=== PATIENT | female | born 1965 | race Caucasian/White ===

== ENCOUNTER → 2020-09-27 14:03 | Outpatient (CLI) | payer OTHER, SELFPAY ==
--- NOTE | ~2020-09-27 | MM_ITS ---
EXAMINATION: MM screening [facility] BI w oly HISTORY: Screening TECHNIQUE: Craniocaudal and mediolateral oblique 3-D tomosynthesis images were obtained and synthetic 2-D images were generated. CAD analysis was submitted and interpreted. COMPARISON: Comparison to multiple prior studies sequentially, with oldest reviewed study dated 03/20. BREAST PARENCHYMAL COMPOSITION: The breasts are extremely dense, which lowers the sensitivity of mamm ography. FINDINGS: There is a benign-appearing mass in the lower inner quadrant of the right breast which does not appear to be significantly changed allowing for differences of technique. There is no evidence o f suspicious mass, calcification, or architectural distortion to suggest malignancy in either breast. There has been no suspicious interval change. IMPRESSION: 1. No mammographic evidence of malignancy. 2. Recommend routine screening mammography in one year. BI-RADS Category 2: Benign finding(s). Reviewed, dictated and finalized at location A. [facility]
== END ==
PROVIDERS: PCP Internal Medicine; Visit Provider Obstetrics & Gynecology
DX: Z12.31 Encounter for screening mammogram for malignant neoplasm of breast (principal)
CPT/HCPCS: 77063; 77067

== ENCOUNTER 2022-01-10 14:52 | Outpatient (CLI) | payer OTHER, SELFPAY ==
--- NOTE | ~2022-01-10 | MM_ITS ---
EXAMINATION: MM screening danae BI w oly HISTORY: Screening mammogram TECHNIQUE: Craniocaudal and mediolateral oblique 3-D tomosynthesis images were obtained and synthetic 2-D images were generated. Bilateral rotated lateral CC views. CAD analysis was submitted and interp reted. COMPARISON: 09/27/2020, 08/18/2019, 06/25/2018 bilateral screening mammogram examinations BREAST PARENCHYMAL COMPOSITION: The breasts are heterogeneously dense, which may obscure small masses . FINDINGS: Asymmetry and questionable architectural distortion in the upper breasts on MLO view. Bilat eral diagnostic mammography and bilateral breast ultrasound examination are recommended. IMPRESSION: 1. Possible asymmetry/architectural distortion in upper breasts 2. Diagnostic bilateral mammogram and bilateral breast ultrasound examination are recommended BI-RADS Category 0: Incomplete: Needs additional imaging evaluation. Reviewed, dictated and finalized at location A. IMPRESSION: 1. Possible asymmetry/architectural distortion in upper breasts 2. Diagnostic bilateral mammogram and bilateral breast ultrasound examination a re recommended BI-RADS Category 0: Incomplete: Needs additional imaging evaluation.
== END 2022-01-10 14:53 | disposition home or self-care (01) ==
LOC: ANHIMG 14:53
PROVIDERS: PCP Internal Medicine; Visit Provider Obstetrics & Gynecology
DX: Z12.31 Encounter for screening mammogram for malignant neoplasm of breast (principal); R92.8 Other abnormal and inconclusive findings on diagnostic imaging of breast
CPT/HCPCS: 77063; 77067

== ENCOUNTER 2022-01-24 11:23 | Outpatient (CLI) | payer OTHER, SELFPAY ==
--- NOTE | ~2022-01-24 | MMUS_ITS ---
EXAMINATION: MM diagnostic danae BI w oly, US breast BI complete HISTORY: Follow-up bilateral breast asymmetries TECHNIQUE: Additional 3-D tomosynthesis images of the breasts were performed and synthetic 2-D images were generated. CAD analysis was submitted and interpreted. High resolution complete bilateral breas t ultrasound was performed. COMPARISON: 01/10/2022 BREAST PARENCHYMAL COMPOSITION: The breasts are extremely dense, which lowers the sensitivity of mamm ography FINDINGS: MAMMOGRAPHIC FINDINGS: There are no suspicious masses, calcifications or architectural distortion in either breast to sugges t malignancy. ULTRASOUND: Complete bilateral US of all 4 quadrants of the breasts and retroareolar region was reviewed. Right breast ultrasound: At 2:00, 2 cm from the nipple there is an oval hypoechoic mass measuring 7 x 4 x 5 mm without posterior shadowing or internal vascularity. Parallel orientation. At 3:00, 5 cm fr om the nipple, there is a 7 mm cyst. Left breast ultrasound: At 5:00, 5 cm from the nipple there is a 3 mm cyst. At 5:00, 5 cm from the ni pple there is a 3 mm cyst. At 10:00, 5 cm from the nipple there is a 8 mm cyst. IMPRESSION: 1. Probable benign right breast mass by ultrasound at 2:00, 2 cm from the nipple. No evidence for mal ignancy in the left breast. 2. Recommend 6 month follow-up limited right breast ultrasound BI-RADS category 3, probably benign findings. Reviewed, dictated and finalized at location A. IMPRESSION: 1. Probable benign right breast mass by ultrasound at 2:00, 2 cm from the nippl e. No evidence for malignancy in the left breast. 2. Recommend 6 month follow-up limited right breast ultrasound BI-RADS category 3, probably benign findings.
== END 2022-01-24 11:24 | disposition home or self-care (01) ==
LOC: ANHIMG 11:25
PROVIDERS: PCP Internal Medicine; Visit Provider Obstetrics & Gynecology Gynecology
DX: R92.8 Other abnormal and inconclusive findings on diagnostic imaging of breast (principal)
CPT/HCPCS: 76641; 77062; 77066; G0279

== ENCOUNTER → 2022-08-02 09:56 | Outpatient (CLI) | payer OTHER, SELFPAY ==
--- NOTE | ~2022-08-02 | US_ITS ---
US breast RT limited 08/02/2022 10:13 Indication: Follow-up right breast mass Procedure: High-resolution Limited ultrasound of the right breast Comparison: Ultrasound dated 01/24/2022 Findings: There is an oval hypoechoic mass at 2:00, 2 cm from the nipple with posterior acoustic enha ncement measuring 5 x 4 x 4 mm without internal vascularity. This compares to prior study when the ma ss measured 7 x 4 x 5 mm. There is parallel orientation, no internal vascularity. Impression: 1: Slightly decreased size of oval 5 mm right breast mass located at 2:00, 2 cm from the nipple, like ly benign. BI-RADS CATEGORY 3-PROBABLY BENIGN FINDING RECOMMENDATION: Six-month follow-up bilateral mammogram and targeted right breast ultrasound. Reviewed, dictated and finalized at location A. Impression: 1: Slightly decreased size of oval 5 mm right breast mass located at 2:00, 2 cm from the nipple, likely benign. BI-RADS CATEGORY 3-PROBABLY BENIGN FINDING RECOMMENDATION: Six-month follow-up bilateral mammogram and targeted right tasha st ultrasound.
== END ==
PROVIDERS: PCP Advanced Practice Midwife; Visit Provider Advanced Practice Midwife
DX: R92.8 Other abnormal and inconclusive findings on diagnostic imaging of breast (principal)
CPT/HCPCS: 76642

== ENCOUNTER → 2023-05-21 09:46 | Outpatient (CLI) | payer OTHER, SELFPAY ==
--- NOTE | ~2023-05-21 | MMUS_ITS ---
EXAMINATION: MM diagnostic danae BI w oly, US breast RT limited HISTORY: TECHNIQUE: Additional 3-D tomosynthesis images of were performed and synthetic 2-D images were genera betsy. CAD analysis was submitted and interpreted. High resolution breast ultrasound was performed. COMPARISON: 08/19/2022 Limited right breast ultrasound examination 4. 11/26/2021 diagnostic bilateral mammogram and complete bilateral breast ultrasound examination BREAST PARENCHYMAL COMPOSITION: The breasts are heterogeneously dense, which may obscure small masses . FINDINGS: MAMMOGRAPHIC FINDINGS: Approximately 4.5 mm circumscribed low-density opacity is noted in the anterior inner aspect of the m id medial right breast. This has benign mammographic features. No suspicious mass, architectural distortion, malignant calcification, skin thickening or retraction of either breast is detected. ULTRASOUND: Targeted ultrasound of right breast was performed in the 2:00 and 3:00 area. At 2:00 2 cm from the nipple there is a circumscribed hypoechoic solid lesion measuring 4.3 x 4.3 x 5 .5 mm dimension.. The margins are mildly irregular. No internal vascularity is noted. Due to the irre gular margins and slight increase in size since previous measurement of 4.1 x 4.4 x 5 mm on 08/02/2022 , ultrasound-guided biopsy is recommended. IMPRESSION: 1. Mildly increased size of right breast 2:00 lesion, measuring up to 5.5 mm dimension, with mildly i rregular margins. 2. Ultrasound-guided biopsy of right breast 2:00 lesion is recommended BI-RADS category 4, suspicious findings. Reviewed, dictated and finalized at location A. IMPRESSION: 1. Mildly increased size of right breast 2:00 lesion, measuring up to 5.5 mm di mension, with mildly irregular margins. 2. Ultrasound-guided biopsy of right breast 2:00 lesion is recommended BI-RADS category 4, suspicious findings.
== END ==
PROVIDERS: PCP Advanced Practice Midwife; Visit Provider Advanced Practice Midwife
DX: N63.10 Unspecified lump in the right breast, unspecified quadrant (principal); R92.8 Other abnormal and inconclusive findings on diagnostic imaging of breast
CPT/HCPCS: 76642; 77062; 77066; G0279

== ENCOUNTER → 2023-08-16 10:51 | Outpatient (CLI) | payer OTHER, SELFPAY ==
--- NOTE | ~2023-08-16 | DEXA_ITS ---
Bone Density Report Name: LING HODGES Age: 57 Sex: Female Ethnicity: White Date of : 1965 Indication: postmenopausal; screening for osteoporosis; hysterectomy; Referring Provider: ANUP PATEL Study: Bone densitometry was performed. Exam Date: August 16, 2023 Accession number: [id number] Bone Density: Region BMD T-score Z-score Classification AP Spine (L1-L4) 0.951 -0.9 0.5 Normal Femoral Neck (Left) 0.726 -1.1 0.1 Osteopenia Total Hip (Left) 0.832 -0.9 0.0 Normal Femoral Neck (Right) 0.799 -0.5 0.8 Normal Total Hip (Right) 0.804 -1.1 -0.3 Osteopenia Total Hip Mean 0.818 -1.0 -0.2 Normal World Health Organization criteria for BMD impression classify patients as: Normal (T-score at or above -1.0), Osteopenia (T-score between -1.0 and -2.5), or Osteoporosis (T-score at or below -2.5). 10-year Fracture Risk(1): Major Osteoporotic Fracture 6.8% Hip Fracture 0.7% Reported Risk Factors: [place] (), Neck BMD=0.726, BMI=24.5, smoking (1) FRAX(R) Version 3.08. Fracture probability calculated for an untreated patient. Fracture probability may be lower if the patient has received treatment. Previous Exams: Region Exam Age BMD T-score BMD Change BMD Change Date g/cm2 vs Baseline vs Previous AP Spine(L1-L4) 08/16/2023 57 0.951 -0.9 -0.084* -0.084* 06/25/2018 52 1.036 -0.1 Total Hip(Left) 08/16/2023 57 0.832 -0.9 -0.021 -0.021 06/25/2018 52 0.853 -0.7 Total Hip(Right) 08/16/2023 57 0.804 -1.1 -0.021 -0.021 06/25/2018 52 0.825 -1.0 *Denotes significance at 95% confidence level, LSC for AP Spine = 0.022 g/cm2, LSC for Total Hip = 0.027 g/cm2 Clinical Information Provided by Patient: Smokes Has the following medical conditions: Hysterectomy Patient maximum height was 65 Menopause Age: 41 Drinks caffeinated beverages Onset of menses at age 11 Number of children 1 Impression: The patient has low bone mass, based on the Right Total Hip T-score. The patient has an estimated ten-year risk of hip fracture of 0.7% and an estimated ten-year risk of major fracture of 6.8%, based on the WHO FRAX algorithm. The patient has risk factors, including: smoking. The BMD for the AP Spine(L1-L4) decreased, changing by -0.084 since the last DXA exam. Discussion: BONE DENSITY IS LOW AT ONE OR MORE SKELETAL SITES. This patient's lowest T-score is low at one or more
== END ==
PROVIDERS: PCP Advanced Practice Midwife; Visit Provider Advanced Practice Midwife
DX: Z78.0 Asymptomatic menopausal state (principal); M85.89 Other specified disorders of bone density and structure, multiple sites
CPT/HCPCS: 77080

== ENCOUNTER 2023-12-11 09:49 | Outpatient (CLI) | payer OTHER, SELFPAY ==
--- NOTE | ~2023-12-11 | MMUS_ITS ---
EXAMINATION: MM diagnostic danae RT w oly, US breast RT limited HISTORY: Six-month follow-up of 2:00 right breast lesion 2 cm from nipple TECHNIQUE: Full field and spot ML, MLO and CC 3-D tomosynthesis images of the right breast were perfo rmed and synthetic 2-D images were generated. CAD analysis was submitted and interpreted. High resolu tion limited right breast ultrasound was performed. COMPARISON: 05/21/2023 diagnostic right mammogram and limited right breast ultrasound 08/02/2022 Limited right breast ultrasound 01/24/2022 bilateral diagnostic mammogram and bilateral complete breast ultrasound examination 01/10/2022 bilateral screening mammogram BREAST PARENCHYMAL COMPOSITION: The breasts are heterogeneously dense, which may obscure small masses . FINDINGS: MAMMOGRAPHIC FINDINGS: No suspicious mass or architectural distortion, malignant calcification, skin thickening or retractio n or significant new or developing density is detected. ULTRASOUND: 3-4:00 2 cm from nipple: There is an irregular hypoechoic antiparallel approximately 3.5 x 4 x 3.3 mm lesion with mild adjacent vascularity on color flow imaging. Ultrasound-guided biopsy of this is rec ommended 2.-3:00 2 cm from nipple: Incompletely circumscribed irregular approximately 4.3 x 5.4 x 6.3 mm mass without internal vascularity or posterior shadowing. The incomplete circumcision and partially irregu lar margins are of concern. Additionally, there is mildly increased size compared to 08/19/2022. Ultr asound-guided biopsy is recommended. IMPRESSION: 1. Suspicious sonographic findings at 3-4:00 2 cm from nipple and 2-3:00 2 cm from nipple 2. Ultrasound-guided biopsy of these 2 areas is recommended BI-RADS category 4, suspicious findings. Reviewed, dictated and finalized at location A. IMPRESSION: 1. Suspicious sonographic findings at 3-4:00 2 cm from nipple and 2-3:00 2 cm f rom nipple 2. Ultrasound-guided biopsy of these 2 areas is recommended BI-RADS category 4, suspicious findings.
== END 2023-12-11 09:50 ==
PROVIDERS: PCP Surgery; Visit Provider Surgery
DX: N63.10 Unspecified lump in the right breast, unspecified quadrant (principal); R92.8 Other abnormal and inconclusive findings on diagnostic imaging of breast
CPT/HCPCS: 76642; 77061; 77065; G0279

== ENCOUNTER 2024-01-20 08:53 | Outpatient (CLI) | payer OTHER, SELFPAY ==
--- NOTE | ~2024-01-20 | US_ITS ---
US breast RT limited DATE: 01/20/2024 14:56 INDICATION: Patient presented for ultrasound-guided biopsy suggested at 2-3:00 and 3-4:00 based upon 12/11/2023 limited right breast ultrasound examination. TECHNIQUE: Real-time imaging was performed by the technologist and subsequently in the presence of e radiologist at the areas of concern at T11 3:00 2 cm from the nipple and 3-4:00 2 cm from the nippl e. COMPARISON: 12/11/2023 diagnostic right mammogram and right breast Limited ultrasound examination FINDINGS: No suspicious mass or shadowing is detected at 2-3:00 or 3-4:00. IMPRESSION: BI-RADS Category 1: Negative Recommendation: Routine annual mammographic screening Reviewed, dictated and finalized at Location A. Reviewed, dictated and finalized at location A.
== END 2024-01-20 08:54 | disposition home or self-care (01) ==
LOC: ANHIMG 08:54
PROVIDERS: PCP Surgery; Visit Provider Surgery
DX: N63.10 Unspecified lump in the right breast, unspecified quadrant (principal); R92.8 Other abnormal and inconclusive findings on diagnostic imaging of breast
CPT/HCPCS: 76642

== ENCOUNTER 2024-08-19 10:40 | Outpatient (CLI) | payer OTHER, SELFPAY ==
--- NOTE | ~2024-08-19 | MMUS_ITS ---
EXAMINATION: MM diagnostic danae BI w oly, US breast RT limited HISTORY: Right breast 2:00 lesion TECHNIQUE: 3-D tomosynthesis images of the breasts were performed and synthetic 2-D images were gener ated. CAD analysis was submitted and interpreted. High resolution limited right breast ultrasound was performed. COMPARISON: 05/21/2023, 01/24/2022, 12/11/2023, 08/02/2022 BREAST PARENCHYMAL COMPOSITION:Dense: The breasts are heterogeneously dense, which may obscure small masses. FINDINGS: MAMMOGRAPHIC FINDINGS: Parenchymal pattern of the breasts is unchanged. No suspicious mass lesion or distortion are evident. No suspicious microcalcification. ULTRASOUND: At the 2:00 position right breast, 1 cm from the nipple, there is a 6 x 5 x 4 mm hypoechoic mass, rel atively circumscribed, probably parallel in orientation. No posterior shadowing. No other suspicious lesion or sonographic abnormality seen in the region scanned. IMPRESSION: Stable 6 mm mass at the right breast 2:00 position. Stability since 2021 is compatible with benignit y. No evidence for malignancy. BI-RADS Category 2: Benign finding(s). Reviewed, dictated and finalized at location M. SPRING FORMER IMPRESSION: Stable 6 mm mass at the right breast 2:00 position. Stability since 2021 is co mpatible with benignity. No evidence for malignancy. BI-RADS Category 2: Benign finding(s).
== END 2024-08-19 10:41 | disposition home or self-care (01) ==
LOC: ANHIMG 10:43
PROVIDERS: PCP Surgery; Visit Provider Advanced Practice Midwife
DX: Z12.31 Encounter for screening mammogram for malignant neoplasm of breast (principal); N63.12 Unspecified lump in the right breast, upper inner quadrant
CPT/HCPCS: 76642; 77062; 77066; G0279

== ENCOUNTER 2025-08-25 11:43 | Outpatient (CLI) | payer OTHER, SELFPAY ==
--- OUTSIDE RECORDS SUMMARY | 2025-08-24 14:40 | XMS_ITS | Encounter Summary ---
Author Organization [facility] Address [address] [place] [address] Phone Care Team Providers Care Estimator [employer]el[employer] Name Role Phone Marlo Waddell MD Primary Care Provider [phone] Ming Gonzalez MD Unavailable [phone] Reason for Visit * Reason Comments Immunization/Injection Encounter Details Date Type Department Care Team (Late st Contact Info) Description 08/24/2025 2:40 PM ON CALL PHARMACY TECHNICIAN Immunization [facility] [address] [place] [address] Encounter for immunization (Primary Dx) Discharge Disposition: Discharged to home or Selfcare Social History Tobacco Use Types Packs/Day Years Used Date Smoking Tobacco: Never Smokeless Tobacco: Never Alcohol Use Standard Drinks/Week Comments Yes 0 (1 standard drink = 0.6 oz pur e alcohol) weekend drinker [facility] Utilities Answer Date Recorded In the past 12 months has [employer], [employer], oil, or water [employer] threatened to shut off services in your home? No 02/23/2025 Social Connection and Isolation Panel Answer Date Recorded In a typical week, how many times do you talk on the phone with family, friends, or neighbors? Twice a week 02/24/20 How often do you get togethe r with friends or relatives? Three times a week 02/23/2025 How often do you attend [facility] or jew services? Patient declined 02/23/2025 Do you belong to any clubs o r organizations such as mosque groups, unions, fraternal or athletic groups, or school groups? Yes 02/23/2025 How often do you attend meet ings of the clubs or organizations you belong to? 1 to 4 times per year 02/23/2025 Are you , , di vorced, , never , or living with a partner? 02/23/2025 AUDIT-C Answer Date Recorded Q1: How often do you have a drink containing alc ohol? 2-3 times a week 02/23/2025 Q2: How many drinks containi ng alcohol do you have on a typical day when you are drinking? 1 or 2 02/23/2025 Q3: How often do you have si x or more drinks on one occasion? Less than monthly 02/23/2025 Overall Financial Resource Strain (CARDIA) Answe r Date Recorded How hard is it for you to pa y for the very basics like food, housing, medical care, and heating? Not hard at all 02/23/2025 PHQ-2 Answer Date Recorded Total Score - Questions 1-9 0 01/29 [facility] - Occupational Stress Questionnaire Answer Date Recorded Do you feel stress - tense, restless, nervous, or anxious, or unable to sleep at night because your mind is troubled all the time - these days? Not at all 02/23/2025 Exercise Vital Sign Answer Date Recorde d On average, how many days pe r week do you engage in moderate to strenuous exercise (like a brisk walk)? 3 days 02/23/2025 On average, how many minutes do you engage in exercise at this level? 30 min 02/23/2025 Hunger Vital Sign Answer Date Recorded Within the past 12 months, y ou worried that your food would run out before you got the money to buy more. Never true 02/24/20 25 Within the past 12 months, t he food you bought just didn't last and you didn't have money to get more. Never true 02/23/2025 PRAPARE - Transportation Answer Date Re corded In the past 12 months, has l ack of transportation kept you from medical appointments or from getting medications? No 01/29 In the past 12 months, has l ack of transportation kept you from meetings, work, or from getting things needed for daily living? No 02/23/2025 Housing Stability Vital Sign Answer Mika e Recorded In the last 12 months, was t here a time when you were not able to pay the mortgage or rent on time? No 02/17/2024 In the last 12 months, how many places have you lived? 1 02/17/2024 In the last 12 months, was t here a time when you did not have a steady place to sleep or slept in a halfway (including now)? No 02/17/2024 Housing Stability Vital Sign Answer Mika e Recorded In the last 12 months, was t here a time when you were not able to pay the mortgage or rent on time? No 02/23/2025 In the past 12 months, how m any times have you moved where you were living? 0 02/23/2025 At any time in the past 12 m [facility], were you homeless or living in a halfway (including now)? No 02/23/2025 Education Answer Date Recorded What is the highest level of school you have completed or the highest degree you have received? 12th grade 12/10/2022 Sexually Active Control Partners Comments Not Currently Male Comments No Sex and Gender Information Value Date Recorded Sex Assigned at Not on file Legal Sex Female 8:44 PM CDT Gender Identity Not on file Sexual Orientation Straight 02/17/2024 9: 59 PM CDT documented as of this encounter Progress Notes * Viri Sevilla MA - 08/24/2025 2:40 PM CST Mariza is here for Flu immunizations per order of Dr. Marlo Waddell dated 08/24/25. Administered in left deltoid . Vaccine Information Sheet(s) were given on 08/24/25. Verbal consent was obtained. Mariza tolerated the immunization well without incident. See Immunization activity for details. CALL PHARMACY TECHNICIAN documented in this encounter Plan of Treatment Upcoming Encounters Date Type Department Care Team (Late st Contact Info) Description 03/02/2026 9:00 AM CDT Office Visit [facility] - Family Medicine [facility] [address] [place] [id number] Marlo Waddell MD [address] [address] documented as of this encounter Visit Diagnoses Diagnosis Encounter for immunization- Primary Need for other specified prophylactic vaccination against single bacterial disease documented in this encounter Additional Health Concerns Assessment Noted Time PHQ-9 Depression Total Score: 0 02/25/20 25 9:41 AM CDT documented as of this encounter Care Teams Estimator Jewelry Relationship Specialty Start Date End Date Marlo Waddell MD [address] [address] PCP - General Family Medicine 05/30/16 Ming Gonzalez MD [address] [place] [address] Obstetrics & Gynecology 06/14/20 documented as of this encounter
--- NOTE | ~2025-08-25 | MM_ITS ---
EXAMINATION: MM screening danae BI w oly HISTORY: Screening. TECHNIQUE: Craniocaudal and mediolateral oblique 3-D tomosynthesis images were obtained and synthetic 2-D images were generated. CAD analysis was submitted and interpreted. COMPARISON: 2023, 2022, and 2021. BREAST PARENCHYMAL COMPOSITION: Dense: The breast tissue is heterogeneously dense, which may obscure small masses. FINDINGS: There are findings consistent with the known breast cysts. There is an asymmetry in the medial aspect of the left craniocaudal view. There are no suspicious calcifications. No unexplained architectural distortion is seen. There are no skin or nipple abnormalities identified. There is no adenopathy seen on the images submitted. IMPRESSION: Asymmetry on the left for which additional mammographic and possibly sonographic imaging is recommended. BI-RADS: 0 - Incomplete - needs additional imaging evaluation and/or prior mammograms for comparison. Reviewed, dictated and finalized at location B. SPECIALIST IMPRESSION: Asymmetry on the left for which additional mammographic and possibly sonographi c imaging is recommended. BI-RADS: 0 - Incomplete - needs additional imaging evaluation and/or prior mamm ograms for comparison.
--- NOTE | ~2025-08-25 | DEXA_ITS ---
Bone Density Report Name: LING HODGES Age: 59 Sex: Female Ethnicity: White Date of : 1965 Indication: postmenopausal; screening for osteoporosis; Referring Provider: NELI, YOHANA Study: Bone densitometry was performed. Exam Date: August 25, 2025 Accession number: [id number] Bone Density: Region BMD T-score Z-score Classification AP Spine(L1-L4) 0.892 -1.4 0.1 Osteopenia Femoral Neck (Left) 0.674 -1.6 -0.3 Osteopenia Total Hip (Left) 0.870 -0.6 0.4 Normal Femoral Neck (Right) 0.650 -1.8 -0.5 Osteopenia Total Hip (Right) 0.846 -0.8 0.2 Normal Femoral Neck Mean 0.662 -1.7 -0.4 Osteopenia Total Hip Mean 0.858 -0.7 0.3 Normal World Health Organization criteria for BMD impression classify patients as: Normal (T-score at or above -1.0), Osteopenia (T-score between -1.0 and -2.5), or Osteoporosis (T-score at or below -2.5). 10-year Fracture Risk(1): Major Osteoporotic Fracture 9.0% Hip Fracture 0.9% Reported Risk Factors: [place] (), Neck BMD=0.650, BMI=25.0 (1) FRAX(R) Version 3.08. Fracture probability calculated for an untreated patient. Fracture probability may be lower if the patient has received treatment. Clinical Information Provided by Patient: Patient maximum height was 64 Menopause Age: 42 No regular weight bearing exercise Drinks caffeinated beverages Onset of menses at age 11 Number of children 1 Impression: The patient has low bone mass, based on the Right Femoral Neck T-score. Discussion: BONE DENSITY IS LOW AT ONE OR MORE SKELETAL SITES. This patient's lowest T-score is low at one or more skeletal sites. It meets the World Health Organization's (WHO) criteria for ?low bone mass? (T-score between -1.0 and -2.5). The patient's 10-year risk of fracture as calculated by FRAX is less than the threshold where pharmacological therapy is recommended by the National Osteoporosis Foundation (NOF). However, all treatment decisions require clinical judgment and consideration of individual patient factors, including patient preferences, comorbidities, previous drug use, risk factors not captured in the FRAX model (e.g., frailty, falls, vitamin D deficiency, increased bone turnover, interval significant decline in bone density) and possible under or overestimation of fracture risk by FRAX. The patient should follow a healthful lifestyle (good nutrition with adequate calcium and vitamin D, and appropriate weight-bearing exercise). Follow-Up: Consider repeating this study in 2 to 3 years to reassess this patient's status, or sooner if there is some new clinical indication. Reported by: CAROLEE on 08/25/2025 12:13:00 PM. Reviewed, dictated and finalized at location A.
--- OUTSIDE RECORDS SUMMARY | 2025-08-25 12:18 | XMS_ITS | Clinical Summary ---
Author Organization [facility] Address [address] [address] Phone Care Team Providers Care Clinical Laboratory Technician Name Role Phone Marlo Waddell MD Primary Care Provider [phone] Ming Gonzalez MD Unavailable [phone] Allergies No known active allergies Medications levothyroxine (SYNTHROID) 125 MCG Tablet TAKE 1 TABLET BY MOUTH DAILY 90 Tablet 3 06/08/2025 Active Active Problems Problem Noted Date Diagnosed Date Screening for colon cancer 06/29/2020 Family history of colon cancer in father 020 Hypothyroidism Encounters Date Type Department Care Team Description 08/24/2025 2:40 PM DISPATCHER MAINTENANCE Immunization [facility] [address] [place] [address] Encounter for immunization (Primary Dx) Discharge Disposition: Discharged to home or Selfcare 08/24/2025 Travel 06/07/2025 Refill [facility] [address] [place] [address] Marlo Waddell MD Medication Refill from Last 3 Months Immunizations Immunization Administration Dates Next Due Covid-19, Mrna, Lnp-s, Pf, 3 0 Mcg/0.3 Ml Dose (Cumed) 01/26/2021,01/03/2021 Influenza Vaccine greater than 3 yrs 09/01/2022, 07/31/2014 Influenza Vaccine, MDCK,quad rivalent, pres free 09/01/2022 Influenza Vaccine, Quadrivalent, PF 05/31,06/11/2019,06/10/2018,05/30 Influenza, Seasonal, Injecta ble, Undefined 07/31/2014 Influenza,Split Virus,Trivalent,Injectable,PF 08/24/2025,08/21/2024 PUR FLU 3+ YRS PRES FREE QUAD IM 05/30/2016 Pneumococcal conjugate PCV20 , polysaccharide [id number] conjugate, adjuvant, PF 02/24/2025 TDAP Vaccine 02/19/2024 Family History Medical History Relation Name Comments No Known Problems Brother 1 Cancer Brother 2 kidney No Known Problems Brother 3 Cancer Brother 4 kidney Heart Attack Brother 5 Heart Attack Brother 6 No Known Problems Daughter Cancer Father Colon Cancer Father Hypertension Father Stroke Father Hypertension Mother Kidney Disease Mother Hypertension Sister Relation Name Status Comments Brother 1 Alive Brother 2 Alive Brother 3 Alive Brother 4 Alive Brother 5 Alive Brother 6 Daughter Alive Father Mother Sister Alive Social History Tobacco Use Types Packs/Day Years Used Date Smoking Tobacco: Never Smokeless Tobacco: Never Tobacco Cessation:Counseling Given: No Alcohol Use Standard Drinks/Week Comments Yes 0 (1 standard drink = 0.6 oz pur e alcohol) weekend drinker [facility] Utilities Answer Date Recorded In the past 12 months has [employer], gas, oil, or water [employer] threatened to shut off services in your home? No 02/23/2025 Social Connection and Isolation Panel Answer Date Recorded In a typical week, how many times do you talk on the phone with family, friends, or neighbors? Twice a week 02/24/20 How often do you get togethe r with friends or relatives? Three times a week 02/23/2025 How often do you attend [facility] or jewish services? Patient declined 02/23/2025 Do you belong to any clubs o r organizations such as shinto groups, unions, fraternal or athletic groups, or [...] Total Score - Questions 1-9 0 01/29 [facility] [place] of Occupat ional Health - Occupational Stress Questionnaire Answer Date Recorded [...] place to sleep or slept in a usp (including now)? No 02/17/2024 Housing Stability Vital Sign Answer Mika e Recorded In the last 12 months, was t here a time when you were not able to pay the mortgage or rent on time? No 02/23/2025 In the past 12 months, how m any times have you moved where you were living? 0 02/23/2025 At any time in the past 12 m [facility], were you homeless or living in a usp (including now)? No 02/23/2025 Education Answer Date [...] Orientation Straight 02/17/2024 9: 59 PM CDT Last Filed Vital Signs Vital Sign Reading Time Taken Comments Blood Pressure 108/74 02/24/2025 8:48 AM CDT Pulse 63 02/24/2025 8:48 AM CDT Temperature 36.2 C (97.2 F) 02/24/2025 8:48 AM CDT Respiratory Rate 16 02/24/2025 8:48 AM CDT Oxygen Saturation 97% 02/24/2025 8:48 AM CDT Inhaled Oxygen Concentration - - Weight 68.5 kg (151 lb 1.6 oz) 02/24/2025 8:48 A M CDT Height 163.8 cm (5' 4.5) 02/24/2025 8:48 AM CDT Body Mass Index 25.54 02/24/2025 8:48 AM CDT Plan of Treatment Upcoming Encounters Date Type Department Care Team (Late st Contact Info) Description 03/02/2026 9:00 AM CDT [facility] [address] [place] [address] Marlo Waddell MD [address] [address] [address] Health Maintenance Due Date Last Done Comments Hepatitis C Virus (HCV) Screening 1965 Cologuard 2009 Immunochemical Fecal Occult Blood 2009 Zoster Immunization (1 of 2) 2014 SARS-COV-2 Immunization ( season) 2025 08/29/2021, 01/26/2021, 01/03/2021 Mammogram 08/11/2025 08/11/2024, 12/29, 01/24/2022, Additional history exists Colonoscopy 08/04/2030 08/04/2020, 08/14/2010 Colorectal Cancer Screening 08/04/2030 Td Immunization Every 10 Years (Adults With 1 Tdap) 02/18/2034 02/19/2024 Respiratory Syncytial Virus (RSV) Immunization (Adult) (1 - 1-dose 75+ series) 2039 TdaP Immunization Discontinued 02/19/2024 Pneumococcal Immunization (50+ years) Completed 02/24/2025 Pneumococcal Immunization Combined Discontinued 02/24/2025 Influenza Immunization Completed , 08/21/2024, 09/01/2022, Additional history exists Hepatitis B Immunization Aged Out No longer eligible based on patient's age to complete this topic Human Papillomavirus (HPV) Immunization Aged Out No longer eligible based on patient's age to complete this topic Meningococcal Immunization (ACWY) Aged Out No longer eligible based on patient's age to complete this topic Rotavirus Immunization Aged Out No lo nger eligible based on patient's age to complete this topic Procedures Procedure Name Priority Date/Time Associated Diagnosis Comments MAMMOGRAM BILATERAL GENERIC 01/24/2022 12:00 AM CDT COLONOSCOPY Routine 08/14/2010 from Last 3 Months or Most Recently Relevant to Health Maintenance Results * MAMMOGRAM BILATERAL MISCELLANEOUS (01/24/2022 12:00 AM CDT) 01/24/2022 us Not On File Provider IMG MAMMO ORDERABLES Final Result SCAN * COLONOSCOPY (08/14/2010) us Nemesio Sneed Jr., MD PROCEDURE/MINOR HARVINDER GICAL ORDERABLES Final Result from Last 3 Months or Most Recently Relevant to Health Maintenance Insurance [facility] Care Teams Clinical Laboratory Technician Relationship Specialty Start Date End Date Marlo Waddell MD [address] [address] PCP - General Family Medicine 05/30/16 Ming Gonzalez MD [address] [place] [address] Obstetrics & Gynecology 06/14/20
--- OUTSIDE RECORDS SUMMARY | 2025-08-25 12:18 | XMS_ITS | Encounter Summary ---
Author Organization [facility] Care Team Providers Care System Sales Consultant Name Role Phone Marlo Waddell MD Primary Care Provider [phone] Ming Gonzalez MD Unavailable Encounter Details Date Type Department Care Team (Latest Contact Info) Description 08/24/2025 Travel Social History Tobacco Use Types Packs/Day Years Used Date Smoking Tobacco: Never Smokeless Tobacco: Never Alcohol Use Standard Drinks/Week Comments Yes 0 (1 standard drink = 0.6 oz pur e alcohol) weekend drinker [facility] Utilities Answer Date Recorded In the past 12 months has [employer], gas, oil, or water company threatened to shut off services in your home? No 02/23/2025 Social Connection and Isolation Panel Answer Date Recorded In a typical week, how many times do you talk on the phone with family, friends, or neighbors? Twice a week 02/24/20 How often do you get togethe r with friends or relatives? Three times a week 02/23/2025 How often do you attend [facility] or mormonism services? Patient declined 02/23/2025 Do you belong to any clubs o r organizations such as yazidism groups, unions, fraternal or athletic groups, or [...] Total Score - Questions 1-9 0 01/29 [facility] of Occupat ional Health - Occupational Stress [...] place to sleep or slept in a prison (including now)? No 02/17/2024 Housing Stability Vital Sign Answer Mika e Recorded In the last 12 months, was t here a time when you were not able to pay the mortgage or rent on time? No 02/23/2025 In the past 12 months, how m any times have you moved where you were living? 0 02/23/2025 At any time in the past [address] [facility], were you homeless or living in a prison (including now)? No 02/23/2025 Education Answer Date [...] PM CDT documented as of this encounter Plan of Treatment Upcoming Encounters Date Type Department Care Team (Late st Contact Info) Description 03/02/2026 9:00 AM CDT Office Visit [facility] - Family Medicine [facility] [address] [place] [address] Marlo Waddell MD #[address] [address] documented as of this encounter Visit Diagnoses Not on filedocumented in this encounter Additional Health Concerns Assessment Noted Time PHQ-9 Depression Total Score: 0 02/25/20 25 9:41 AM CDT documented as of this encounter Care Teams System Sales Consultant Relationship Specialty Start Date End Date Marlo Waddell MD #[address] [address] PCP - General Family Medicine 05/30/16 Ming Gonzalez MD [address] [place] [address] Obstetrics & Gynecology 06/14/20 documented as of this encounter
--- OUTSIDE RECORDS SUMMARY | 2025-08-25 12:18 | XMS_ITS | Encounter Summary ---
Author Organization [facility] Address [address] [place] [address] Phone Care Team Providers Care Sand Bobber Name Role Phone Marlo Waddell MD Primary Care Provider [phone] Ming Gonzalez MD Unavailable [phone] Reason for Visit * Reason Comments Medication Refill Encounter Details Date Type Department Care Team (Late st Contact Info) Description 07/24/2023 Refill [facility] [address] [place] [address] Marlo Waddell MD [address] [address] Medication Refill Social History Tobacco Use Types Packs/Day Years Used Date Smoking Tobacco: Never Smokeless Tobacco: Never Alcohol Use Standard Drinks/Week Comments Yes 0 (1 standard drink = 0.6 oz pur e alcohol) weekend drinker PHQ-2 Answer Date Recorded Total Score - Questions 1-9 0 05/0 12/2020 Education Answer Date Recorded What is the [...] PM CDT documented as of this encounter Miscellaneous Notes * Telephone Encounter - Kerry Moscoso RN - 07/24/2023 3:47 PM CDT Medication failed the protocol, provider to review and approve the medication order if appropriate. Requested Prescriptions Pending Prescriptions Disp Refills levothyroxine (SYNTHROID) 125 MCG Tablet [Pharmacy Med Name: LEVOTHYROXINE 0.125MG (125MCG) TAB] 90Tablet 1 Sig: TAKE 1 TABLET BY MOUTH DAILY Thyroid Hormones Protocol Failed - 07/24/2023 3:23 PM Failed - Normal TSH in past 12 months No results found for: TSH Passed - Visit with relevant provider in past 12 months or upcoming 90 days Recent Visits Date Type Provider Dept 12/14/22 Office Visit Marlo Waddell MD [facility] Showing recent visits within past 365 days and meeting all other requirements Future Appointments No visits were found meeting these conditions. Showing future appointments within next 90 days and meeting all other requirements documented in this encounter Plan of Treatment Upcoming Encounters Date Type Department Care Team (Late st Contact Info) Description 03/02/2026 9:00 AM CDT Office Visit [facility] [address] [place] [address] Marlo Waddell MD [address] [address] documented as of this encounter Visit Diagnoses Not on filedocumented in this encounter Additional Health Concerns Assessment Noted Time PHQ-9 Depression Total Score: 0 02/01/20 21 10:00 AM CDT documented as of this encounter Care Teams Sand Bobber Relationship Specialty Start Date End Date Marlo Waddell MD #[address] [address] PCP - General Family Medicine 05/30/16 Ming Gonzalez MD [address] [place] [address] Obstetrics & Gynecology 06/14/20 documented as of this encounter
--- OUTSIDE RECORDS SUMMARY | 2025-08-25 12:18 | XMS_ITS | Encounter Summary ---
Author Organization [facility] Address [address] [place] [address] Phone Care Team Providers Care Dimension Warehouse Supervisor Name Role Phone Marlo Waddell MD Primary Care Provider [phone] Ming Gonzalez MD Unavailable [phone] Reason for Visit * Reason Comments Medication Refill Encounter Details Date Type Department Care Team (Late st Contact Info) Description 12/08/2022 Refill [facility] [address] [place] [address] Marlo Waddell MD #[address] [address] Medication Refill Social History Tobacco Use Types Packs/Day Years Used Date Smoking Tobacco: Never Smokeless Tobacco: Never Alcohol Use Standard Drinks/Week Comments Yes 0 (1 standard drink = 0.6 oz pur e alcohol) weekend drinker PHQ-2 Answer Date Recorded Total Score - Questions 1-9 0 05/0 12/2020 Sexually Active Control [employer] Comments Not Currently Male Comments No Sex and Gender Information Value Date Recorded Sex Assigned at Not on file Legal Sex Female 8:44 PM CDT Gender Identity Not on file Sexual Orientation Straight 02/17/2024 9: 59 PM CDT documented as of this encounter Miscellaneous Notes * Telephone Encounter - Katarina Joshua RMA - 12/10/2022 11:14 AM CDT scheduled * Telephone Encounter - Estephania Gray RN - 12/10/2022 11:00 AM CDT Needs OV with PCP - last apt January 2021 * Telephone Encounter - Estephania Gray RN - 12/10/2022 10:59 AM CDT Medication failed the protocol, provider to review and approve the medication order if appropriate. Requested Prescriptions Pending Prescriptions Disp Refills levothyroxine (SYNTHROID) 125 MCG Tablet [Pharmacy Med Name: LEVOTHYROXINE 0.125MG (125MCG) TAB] 30Tablet 0 Sig: TAKE 1 TABLET BY MOUTH DAILY Thyroid Hormones Protocol Failed - 12/08/2022 12:05 PM Failed - Visit with relevant provider in past 12 months or upcoming 90 days Recent Visits No visits were found meeting these conditions. Showing recent visits within past 365 days and meeting all other requirements Future Appointments No visits were found meeting these conditions. Showing future appointments within next 90 days and meeting all other requirements Failed - Normal TSH in past 12 months No results found for: TSH documented in this encounter Plan of Treatment Upcoming Encounters Date Type Department Care Team (Late st Contact Info) Description 03/02/2026 9:00 AM CDT Office Visit [facility] [address] [place] [address] Marlo Waddell MD #[address] [address] documented as of this encounter Visit Diagnoses Not on filedocumented in this encounter Additional Health Concerns Assessment Noted Time PHQ-9 Depression Total Score: 0 02/01/20 21 10:00 AM CDT documented as of this encounter Care Teams Dimension Warehouse Supervisor Relationship Specialty Start Date End Date Marlo Waddell MD #[address] [address] PCP - General Family Medicine 05/30/16 Ming Gonzalez MD [address] [place] [address] Obstetrics & Gynecology 06/14/20 documented as of this encounter
--- OUTSIDE RECORDS SUMMARY | 2025-08-25 12:18 | XMS_ITS | Encounter Summary ---
Author Organization [facility] Address [address] [place] [address] Phone Care Team Providers Care Edge Worker Name Role Phone Marlo Waddell MD Primary Care Provider [phone] Ming Gonzalez MD Unavailable [phone] Reason for Visit * Reason Comments Medication Refill Encounter Details Date Type Department Care Team (Late st Contact Info) Description 01/17/2023 Refill [facility] [address] [place] [address] Marlo Waddell MD #[address] [address] Medication Refill Social History Tobacco Use Types [...] encounter Miscellaneous Notes * Telephone Encounter - Estephania Gray RN - 01/18/2023 9:43 AM CDT Medication failed the protocol, provider to review and approve the medication order if appropriate. Requested Prescriptions Pending Prescriptions Disp Refills levothyroxine (SYNTHROID) 125 MCG Tablet [Pharmacy Med Name: LEVOTHYROXINE 0.125MG (125MCG) TAB] 90Tablet 1 Sig: TAKE 1 TABLET BY MOUTH DAILY Thyroid Hormones Protocol Failed - 01/17/2023 3:36 PM Failed - Normal TSH in past 12 months No results found for: TSH Passed - Visit with relevant provider in past 12 months or upcoming 90 days Recent Visits Date Type Provider Dept 12/14/22 Office Visit Marlo Waddell MD [facility] Showing recent visits within past 365 days and meeting all other requirements Future Appointments No visits were found meeting these conditions. Showing future appointments within next 90 days and meeting all other requirements documented in this encounter Plan of Treatment Upcoming Encounters Date Type Department Care Team (Late st Contact Info) Description 03/02/2026 9:00 AM CDT Office Visit [facility] [address] [place] [address] Marlo Waddell MD #[address] [address] documented as of this encounter Visit Diagnoses Not on filedocumented in this encounter Additional Health Concerns Assessment Noted Time PHQ-9 Depression Total Score: 0 02/01/20 21 10:00 AM CDT documented as of this encounter Care Teams Edge Worker Relationship Specialty Start Date End Date Marlo Waddell MD #[address] [address] PCP - General Family Medicine 05/30/16 Ming Gonzalez MD [address] [place] [address] Obstetrics & Gynecology 06/14/20 documented as of this encounter
--- OUTSIDE RECORDS SUMMARY | 2025-08-25 12:18 | XMS_ITS | Encounter Summary ---
Author Organization [facility] Address [address] [place] [address] Care Team Providers Care Marine Cargo Inspector Name Role Phone Unavailable Primary Care Provider Unavailabl e Prior Encounters Date Type Department Care Team Description 10/19/2019 Converted 13x Documents [facility] [address] [facility] [place] [address] <No scans attached> Plan of Treatment Not on file Procedures Procedure Name Priority Date/Time Associated Diagnosis Comments CANCELLED APPOINTMENT Routine 03/17/2021 2:00 AM CDT CANCELLED APPOINTMENT Routine 02/17/2021 2:00 AM CDT Visit Diagnoses Not on file
--- OUTSIDE RECORDS SUMMARY | 2025-08-25 12:18 | XMS_ITS | Clinical Summary ---
Author Organization [facility] Address [address] [place] [address] Care Team Providers Care Meter Shop Superintendent Name Role Phone Unavailable Primary Care Provider Unavailabl e Social History Tobacco Use Types Packs/Day Years Used Date Smoking Tobacco: Never Assessed Comments Unknown Sex and Gender Information Value Date Recorded Sex Assigned at Not on file Legal Sex Female 8:39 PM PDT Gender Identity Not on file Sexual Orientation Not on file Plan of Treatment Not on file
== END 2025-08-25 11:44 | disposition home or self-care (01) ==
LOC: CHSIMG 11:44
PROVIDERS: PCP Internal Medicine
DX: Z12.31 Encounter for screening mammogram for malignant neoplasm of breast (principal); Z78.0 Asymptomatic menopausal state; R92.8 Other abnormal and inconclusive findings on diagnostic imaging of breast; M85.89 Other specified disorders of bone density and structure, multiple sites
CPT/HCPCS: 77063; 77067; 77080